=== PATIENT | female | born 1990 | race Caucasian/White ===

== ENCOUNTER 2016-06-15 13:02 | Emergency (ER) | payer SELFPAY ==
[~2016-06-15] VITALS: Ht 167.6 cm; Wt 72.0 kg
[2016-06-15 13:56] LABS: HEMATOCRIT 38.9 % (36.0-46.0); MCH 28.4 PG (29.0-34.0); MCHC 33.4 G/DL (30.0-36.0); MCV 84.9 FL (83-99); MEAN PLAT.VOLUME 9.8 uM^3 (9.5-12.4); PLATELET COUNT 268 K/uL (156-360); RBC DIS.WIDTH-CV 12.9 % (11.8-14.6); RBC DIS.WIDTH-SD 39.1 % (39-53); RED BLOOD COUNT 4.58 M/uL (3.80-5.20); WHITE BLOOD COUNT 5.9 K/uL (4.1-10.2)
[2016-06-15 14:15] LABS: ADD MIUA? NO; BILIRUBIN NEGATIVE; BLOOD NEGATIVE; COLOR YELLOW ((YELLOW)); GLUCOSE (STRIP) NEGATIVE; KETONES TRACE; LEUKOCYTES NEGATIVE; NITRITE NEGATIVE; PROTEIN (STRIP) NEGATIVE; SPECIFIC GRAVITY 1.022 (1.000-1.030); UCUL ADDED? NO; UROBILINOGEN 0.2 MG/DL (0.2-1.0)
[2016-06-15 14:21] LABS: CHLORIDE 104 mEq/L (99-109); SODIUM 136 mEq/L (136-147)
[2016-06-15 14:24] LABS: GLUCOSE 85 mg/dL (70-99)
[2016-06-15 14:25] LABS: ANION GAP 10 MEQ/L (2-14)
[2016-06-15 14:25] LABS: ADD MEDTOX COMMENT Y; AMPHETAMINE NEGATIVE (500 ng/mL); BARBITURATES NEGATIVE (200 ng/mL); BENZODIAZEPINES NEGATIVE (150 ng/mL); COCAINE NEGATIVE (150 ng/mL); INTERNAL CONTROLS VALID? YES; METHADONE NEGATIVE (200 ng/mL); METHAMPHETAMINE NEGATIVE (500 ng/mL); OPIATES (MORPHINE) NEGATIVE (100 ng/mL); OXYCODONE NEGATIVE (100 ng/mL); PHENCYCLIDINE NEGATIVE (25 ng/mL); PROPOXYPHENE NEGATIVE (300 ng/mL); THC CANNABINOIDS PRESUMPTIVE POSITIVE (50 ng/mL); TRICYCLIC ANTIDEPRESSANTS NEGATIVE (300 ng/mL)
[2016-06-15 14:26] LABS: TOTAL BILIRUBIN 1.5 mg/dL (0.0-1.0)
[2016-06-15 14:27] LABS: ALKALINE PHOSPHATASE 60 IU/L (3-129); GFR ESTIMATE (CALCULATED) > 59 mL/min/
[2016-06-15 14:28] LABS: UREA NITROGEN (BUN) 11 mg/dL (9-23)
[2016-06-15 14:36] LABS: QUANTITATIVE HCG < 4.0 MIU/ML
[2016-06-15 14:46] VITALS: BP 121/80
== END 2016-06-15 14:47 | disposition home or self-care (01) ==
LOC: RME 13:02 → EME 13:02 → RME 14:47
PROVIDERS: Nurse Practitioner Family
DX: F12.90 Cannabis use, unspecified, uncomplicated (principal); R55 Syncope and collapse
CPT/HCPCS: 80053; 81003; 84702; 84999; 85027; 99281; 99283